=== PATIENT | female | born 1965 | race Caucasian/White ===

== ENCOUNTER 2025-01-29 10:04 | Emergency (ER) | payer OTHER, SELFPAY ==
[2025-01-29 10:13] VITALS: BP 147/93; PULSE 78; RESP 16; TEMP 36.2; O2SAT 99
--- OUTSIDE RECORDS SUMMARY | 2025-01-29 11:09 | XMS_ITS | Encounter Summary ---
Author Organization [facility] Address [address] [place] [address] Care Team Providers Care Food And Nutrition Supervisor Name Role Phone Jennifer Madera MD Primary Care Provider Jennifer Madera MD Primary Care Provider Encounter Details Date Type Department Care Team (Late st Contact Info) Description 02/27/2021 Telephone Mental Health [address] [place] [address] Shima Maguire [address] [phone] Social History Tobacco Use Types Packs/Day Years Used Date Smoking Tobacco: Never Smokeless Tobacco: Never Alcohol Use Standard Drinks/Week Comments Yes 0 (1 standard drink = 0.6 oz pure alcohol) A handful of times throughout the year Comments No Sex and Gender Information Value Date Recorded Sex Assigned at Not on file Legal Sex Female 2:25 AM PST Gender Identity Not on file Sexual Orientation Not on file documented as of this encounter Plan of Treatment Not on file documented as of this encounter Visit Diagnoses Not on filedocumented in this encounter Care Teams Food And Nutrition Supervisor Relationship Specialty [place] [address] [address] PCP - General 05/23/19 12/21/24 [place] [address] [place] [address] PCP - General 12/24/24 documented as of this encounter
--- OUTSIDE RECORDS SUMMARY | 2025-01-29 11:09 | XMS_ITS | Clinical Summary ---
Author Organization [facility] Address [address] [place] [address] Care Team Providers Care Electrical Cad Technician Name Role Phone Jennifer Madera MD Primary Care Provider Source Comments NOTE: The information displayed by Care Everywhere is extracted from the complete medical record and may not identify all current or past patient conditions.[facility] Allergies No known active allergies Medications DULoxetine (CYMBALTA) 30 mg delayed release capsuleIndicatio ns:PTSD (post-traumatic stress disorder),Anxiet y Take 3 capsules (90 mg) by mouth daily 270 capsule 3 12/30/2024 4:43 PM PDT 5 10/01/19 26 Active ciclesonide (ALVESCO) 80 mcg/actuation inhalerIndicatio ns:Exercise-joana merlene asthma Inhale 1 puff 2 times daily 6.1 g 5 11/07/2024 10:10 PM PDT 5 10/01/19 26 Active albuterol (VENTOLIN HFA) 90 mcg/actuation inhalerIndicatio ns:Exercise-jonaa merlene asthma Inhale 1-2 puffs every 4 to 6 hours as needed for shortness of breath, 1 inhaler should last at least 90 days in well-controlled asthma. 18 g 5 10/01/19 26 Active hydrocortisone 2.5 % topical creamIndications :Eczema, unspecified type Apply to affected area(s) 2 times daily as needed for skin irritation 28.35 g 10/04/2024 11:51 AM PDT 5 10/01/19 26 Active Active Problems Problem Noted Date Diagnosed Date Combined forms of age-related cataract, bilatera l 02/20/2022 Overview (02/20/2022): Added automatically from request for surgery [id number] PTSD (post-traumatic stress disorder) 04/03/2021 Exercise-induced asthma 10/29/2020 Primary malignant neuroendocrine tumor of append ix 09/07/2020 History of adenomatous polyp of colon 06/26/2020 Cecal polyp 08/25/2019 Overview (08/25/2019): records (scanned) Cecal polyp on colonoscopy 12/18/2016. Sessile serated adenoma. Per up-to-date interval is 3 years; due December 2019. Chronic post-traumatic stress disorder (PTSD) Movement disorder 07/15/2019 Fibromyalgia 07/15/2019 Encounters Date Type Department Care Team Description 01/29/2025 [facility] Telephone Encounter Consulting Nurse [address] [place] [address] Johnny Cervantes, DENISHA MANAGER CUSTOMER EYE 11/03/2024 Scanned Administrati ve Document [facility] Unsolicited Results Consent from Last 3 Months Immunizations Immunization Administration Dates Next Due *STANDARD DOSE SYRINGE* (FluLAVAL,FluZONE,FluARIX or AFLURIA) (6+ mos) QUAD 07/24/2022,05/02/2021,05/23/2019,2018 FluVIRIN (4+ years) Tri *VIAL* 05/25/2012,2010 H1N1 Influenza (.50 not PF) 07/27/2009 HepB (Hepatitis B) 12/30/2013,11/28/2013 Herpes Zoster (SHINGRIX) 10/28/2024 Influenza (0.5 PF) 05/25/2012 Influenza (0.5 not PF) 05/20/2011 MMR (Measles, Mumps, Rubella) 11/28/2013 Novel Influenza H1N1, unspec ified formulation 07/27/2009 Pfizer SARS-CoV-2 Vaccinatio n (12 + y/o) (PURPLE CAP) 08/06/2021,12/04/2020,11/13/2020 Tdap (Tetanus, Diphtheria, a cellular Pertussis) 10/28/2024,11/28/2013 Family History Medical History Relation Comments Diabetes Father Diabetes Maternal Grandfather Diabetes Maternal Uncle Hypertension Mother Miscarriages/Stillbirths Mother Depression Son Relation Status Comments Brother Alive Father Alive Maternal Grandfather Maternal Uncle Mother Alive Son Social History Tobacco Use Types Packs/Day Years Used Date Smoking Tobacco: Never Smokeless Tobacco: Never Tobacco Cessation:Counseling Given: Not Answered Alcohol Use Standard Drinks/Week Comments Yes 0 (1 standard drink = 0.6 oz pure alcohol) A handful of times throughout the year Comments No Sex and Gender Information Value Date Recorded Sex Assigned at Not on file Legal Sex Female 2:25 AM PST Gender Identity Not on file Sexual Orientation Not on file Last Filed Vital Signs Vital Sign Reading Time Taken Comments Blood Pressure 126/82 10/28/2024 9:53 AM PDT Pulse 80 10/28/2024 9:53 AM PDT Temperature 36.6 C (97.8 F) 10/28/2024 9:53 AM PDT Respiratory Rate 12 12/03/2023 2:35 PM PDT Oxygen Saturation 96% 10/28/2024 9:53 AM PDT Inhaled Oxygen Concentration - - Weight 86.6 kg (191 lb) 10/28/2024 9:53 AM PDT Height 164.3 cm (5' 4.69) 10/28/2024 9:53 AM PD T Body Mass Index 32.09 10/28/2024 9:53 AM PDT Plan of Treatment Health Maintenance Due Date Last Done Comments Cervical Cancer Screening: HPV 11/20/1995 Vaccine: COVID-19 ( season) 2024 08/06/2021, 12/04/2020, 11/13/2020 Vaccine: Shingles (2 of 2) 12/23/2024 10/28/2024 FLU VACCINE (#1) 03/20/2025 07/24/2022, , 05/23/2019, Additional history exists Blood Pressure Check 09/27/2025 10/28/2024 Breast Cancer Screening: Mammogram 02/21/2026 02/22/2024, 01/31/2022, 01/31/2022, Additional history exists CRCS: Colonoscopy, HMTs [place] by GI 12/02/2028 12/03/2023 Vaccine: PAgO-Sjbe-Cb (3 - T d or Tdap) 10/28/2034 10/28/2024, 11/28/2013 Adult HIV Screen (1-time) Completed 07/24/2022 Hep C Screening (1-time) Completed 07/24/2022 Medical Devices Implanted Type Area Head Of Commission Department Device Identifier Shelf Expiration Date Model / Serial / Lot Lens Iol .190 [employer] Monofocal Blue Light Filtering Aspheric Hydrophic Acrylic - [id number] Implanted:Qt y: 1 on 08/12/2022 by Vi Orr MD at [facility] Ophthalmology Left: Eye [employer] [id number] 12/08/2025 [id number] / [id number] / Description:CDE: 1.70 Lens Iol .185 [employer] Monofocal Blue Light Filtering Aspheric Hydrophic Acrylic - [id number] Implanted:Qt y: 1 on 08/26/2022 by Vi Orr MD at [facility] Ophthalmology Right: Eye [employer] [id number] 12/15/2025 [id number] / [id number] / Description:CDE: 1.50 Procedures Procedure Name Priority Date/Time Associated Diagnosis Comments MAMMO SCREENING, BILAT(2-VIEW) INCL CAD Routine 02/22/2024 1:30 PM PDT ANTIBODY, HEPATITIS C Routine 07/24/2022 2:26 PM PST Encounter for hepatitis C screening test for low risk patient IAAD EIA HIV-1 AG W/HIV-1&HIV-2 ANTBDY SINGLE Routine 07/24/2022 2:26 PM PST Screening for HIV (human immunodeficiency virus) from Last 3 Months or Most Recently Relevant to Health Maintenance Results * MAMMOGRAPHY SCREENING 3D, BILATERAL (02/22/2024 1:30 PM PDT) Anatomical Region Laterality Modality Other 02/22/2024 1:30 PM PDT Impressions 02/23/2024 11:59 AM PDT IMPRESSION: RIGHT BREAST: ACR CODE 1 - NEGATIVE. LEFT BREAST: ACR CODE 1 - NEGATIVE OVERALL ASSESSMENT: ACR 1 - NEGATIVE PATIENT INFORMATION We are pleased to inform you that your screening mammogram shows no signs of breast cancer. You will be receiving a letter in the mail with these results. [facility] guidelines recommend annual screening mammography for high-risk patients and screening mammography within 2 years for normal low risk patients. Examination of risk assessment by radiology is limited and ultimately should be determined by the patient's primary care provider in collaboration with the patient. Regardless of mammography results, women should seek medical attention for any of the following: A breast lump that looks or feels different from the surrounding breast tissue, skin changes, clear or bloody nipple discharge, or nipple retraction. Seek medical attention for these conditions even if a recent mammogram was normal. Patients with palpable abnormalities may require further investigation. Mammograms do not detect all breast cancers and up to 15% of breast cancers cannot be detected by mammography. Signed by: Willem Campos Jr., MD Date: 02/23/2024 11:59 AM Narrative 02/23/2024 11:59 AM PDT [HST]: Screening BILATERAL SCREENING DIGITAL MAMMOGRAM WITH TOMOSYNTHESIS: HISTORY: Screening. COMPARISON: 01/31/2022, 02/01/2020, 03/02/2017. TECHNIQUE: MAMMOGRAPHY SCREENING 3D, BILATERAL Routine screening views of each breast were performed. 3-D/tomosynthesis views with synthetic 2-D reconstructions were reviewed. Computer aided detection (CAD) with physician review was also used. These CAD findings were integrated into the final mammographic interpretation. Bilateral Breast Findings: There are scattered areas of fibroglandular density. There are no dominant masses, suspicious calcifications or architectural distortion. There has been no significant interval change since the prior examination. us Self Referral MAMMOGRAPHY Final Result * HIV SCREENING TEST W/REFLEX (07/24/2022 2:26 PM PST) HIV AG/AB COMBO RESULT NEGATIVE Negative [facility] Comment: This assay is the Blanc Guyline Operator HIV Ag/Ab Combo Assay which detects HIV-1 p24 Ag, HIV-1 Ab, and HIV-2 Ab. BLOOD 07/24/2022 2:26 PM PST 07/24/2022 7:40 PM PST [facility] W/O ABNORMAL RESULTS Sally l Result [facility] [address] [place] [address] [facility] [address] [place] [address] * HEPATITIS C SCREENING (REFLEX) ([facility]) (07/24/2022 2:26 PM PST) HEPATITIS C ANTIBODY NEGATIVE NEGATIVE [facility] BLOOD 07/24/2022 2:26 PM PST 07/24/2022 7:40 PM PST [facility] Final Result Performing Organization Address City/[facility]/ZIP Co de Phone Number [facility] [address] [place] [address] [facility] [address] [place] [address] from Last 3 Months or Most Recently Relevant to Health Maintenance Insurance [facility] Advance Directives For more information, please contact: [phone] Documents on File Type Date Recorded Patient Clinical Manager Expl anation Durable Power of [place]her Advance Directive and Living Will Advance Directive and Living Will 12/03/2023 1:16 PM Durable Power of [place] [employer]her 12/03/2023 1:16 PM Durable Power of [place]her 08/26/2022 5:53 AM Advance Directive and Living Will 08/26/2022 5:53 AM Durable Power of [place]her 08/12/2022 11:57 AM Advance Directive and Living Will 08/12/2022 11:57 AM Durable Power of [place]her 06/26/2020 8:22 AM Advance Directive and Living Will 06/26/2020 8:22 AM * Full Code (Latest Code Status on File) Date Activated Date Inactivated Comments 12/03/2023 1:25 PM 12/04/2023 6:28 AM * Full Code Date Activated Date Inactivated Comments 08/26/2022 6:09 AM 08/27/2022 6:24 AM * Full Code Date Activated Date Inactivated Comments 08/12/2022 12:05 PM 08/13/2022 6:28 AM Care Teams Electrical Cad Technician Relationship Specialty [place] [address] [address] PCP - General 12/24/24
--- OUTSIDE RECORDS SUMMARY | 2025-01-29 11:09 | XMS_ITS | Encounter Summary ---
Author Organization [facility] Address [address] [place] [address] Care Team Providers Care Stunner Animal Name Role Phone Jennifer Lange MD Primary Care Provider Jennifer Lange MD Primary Care Provider Reason for Visit * Reason Comments Refill Request Encounter Details Date Type Department Care Team (Late Contact Info) Description 07/29/2020 Refill [facility] [address] [place] [phone] [place] [address] [address] Refill Request Social History Tobacco Use Types Packs/Day Years Used Date Smoking Tobacco: Never Smokeless Tobacco: Never Alcohol Use Standard Drinks/Week Comments Not Currently 0 (1 standard drink = 0.6 oz pur e alcohol) Comments No Sex and Gender Information Value Date Recorded Sex Assigned at Not on file Legal Sex Female 2:25 AM PST Gender Identity Not on file Sexual Orientation Not on file documented as of this encounter Miscellaneous Notes * Telephone Encounter - Jennifer Lange MD - 07/31/2020 12:44 PM PSTSigned Prescriptions: Disp Refills gabapentin (NEURONTIN) 300 mg capsule 120 ca*6 Sig: TAKE ONE CAPSULE BY MOUTH FOUR TIMES DAILY Authorizing Provider: JENNIFER LANGE * Telephone Encounter - Kimberly Renee, PharmD - 07/31/2020 9:06 AM PSTPending Prescriptions: Disp Refills gabapentin (NEURONTIN) 300 mg capsule [Pha* 11 Sig: TAKE ONE CAPSULE BY MOUTH FOUR TIMES DAILY * Telephone Encounter - Kimberly Renee, PharmD - 07/31/2020 9:06 AM PST Refill(s) are unable to be approved by the Centralized Refill Management Program as the requested medication(s) requires provider review and authorization. Please review request and take appropriate action. If medication is denied or additional follow up is needed, please work with your care team to notify patient. No SCr on record. documented in this encounter Plan of Treatment Not on file documented as of this encounter Visit Diagnoses Diagnosis Chronic post-traumatic stress disorder (PTSD) documented in this encounter Care Teams Stunner Animal Relationship Specialty [place] [address] [address] [place] [address] PCP - General 05/23/19 12/21/24 [place] [address] [address] [address] PCP - General 12/24/24 documented as of this encounter
--- OUTSIDE RECORDS SUMMARY | 2025-01-29 11:09 | XMS_ITS | Encounter Summary ---
Author Organization [facility] Address [address] [place] [address] Care Team Providers Care Wastewater Supervisor Name Role Phone Jennifer Madera MD Primary Care Provider Reason for Visit * Reason Comments RECONCILIATION SPECIALIST EYE Encounter Details Date Type Department Care Team (Late st Contact Info) Description 01/29/2025 [facility] Telephone Encounter Consulting Nurse [address] [address] Johnny Cervantes, DENISHA [address] [place] [address] RECONCILIATION SPECIALIST EYE Social History Tobacco Use Types Packs/Day Years [...] encounter Miscellaneous Notes * Telephone Encounter - Johnny Cervantes RN - 01/29/2025 5:49 AM PDT Complaint: Adult Eye Blurry Vision History & Timing: Amanda Jaimes is a 59 year old patient who reports: In [place] currently Last night noticed a big black spot in right eye that has continued all night until now In lower right field of vision New big floater in the vision No flashes of light or other symptoms TRIAGE QUESTIONS and DISPOSITIONS: [After Hours] NEW Flashes or floaters OR 'veil' or 'curtain' over vision: [facility] Provider, UC/ED Advised to be seen now at nearest UC/ED in [place] for evaluation Recommended Plan: UC Patient indicates understanding and AGREES with the plan. Final Disposition: Urgent Care: OTHER [facility] documented in this encounter Plan of Treatment Not on file documented as of this encounter Visit Diagnoses Not on filedocumented in this encounter Care Teams Wastewater Supervisor Relationship Specialty Start [place] [address] [address] [address] PCP - General 12/24/24 documented as of this encounter
--- OUTSIDE RECORDS SUMMARY | 2025-01-29 11:09 | XMS_ITS | Encounter Summary ---
Author Organization [facility] Address [address] [place] [address] Care Team Providers Care Police Investigator Name Role Phone Jennifer Madera MD Primary Care Provider Jennifer Madera MD Primary Care Provider Encounter Details Date Type Department Care Team (Late st Contact Info) Description 02/27/2021 Patient Email Mental Health [address] [place] [phone] Shima Pierce [address] [address] SHIMA PIERCE ASSESSMENT - Please complete prior to appointment Social History Tobacco Use Types Packs/Day Years [...] on filedocumented in this encounter Care Teams Police Investigator Relationship Specialty [place] [address] [place] [address] PCP - General 05/23/19 12/21/24 [place] [address] [place] [address] PCP - General 12/24/24 documented as of this encounter
--- OUTSIDE RECORDS SUMMARY | 2025-01-29 11:09 | XMS_ITS | Encounter Summary ---
Author Organization [facility] Address [address] [place] [address] Care Team Providers Care Head Chef Name Role Phone Jennifer Madera MD Primary Care Provider Jennifer Madera MD Primary Care Provider Encounter Details Date Type Department Care Team (Late st Contact Info) Description 02/27/2021 Patient Email Mental Health [address] [place] [phone] Shima Pierce D [address], [place] [address] SHIMA PIERCE - Video visit Social History Tobacco Use Types Packs/Day Years [...] on filedocumented in this encounter Care Teams Head Chef Relationship Specialty [place] [address] [place] [address] PCP - General 05/23/19 12/21/24 [place] [address] [place] [address] PCP - General 12/24/24 documented as of this encounter
--- OUTSIDE RECORDS SUMMARY | 2025-01-29 11:09 | XMS_ITS | Encounter Summary ---
Author Organization [facility] Address [address] [place] [address] Care Team Providers Care Trestle Builder Name Role Phone Jennifer Madera MD Primary Care Provider Jennifer Madera MD Primary Care Provider Encounter Details Date Type Department Care Team (Late st Contact Info) Description 08/18/2022 Prep for Surgery [facility] [address] [phone] [place] [address] [phone] Combined form of age-related cataract, right eye (Primary Dx) Social History Tobacco Use Types Packs/Day Years [...] as of this encounter Visit Diagnoses Diagnosis Combined form of age-related cataract, right eye- Primary documented in this encounter Care Teams Trestle Builder Relationship Specialty [place] [address] [place], [place] [address] PCP - General 05/23/19 12/21/24 [place] [address] [address] PCP - General 12/24/24 documented as of this encounter
--- OUTSIDE RECORDS SUMMARY | 2025-01-29 11:10 | XMS_ITS | Clinical Summary ---
Author Organization [facility] Address [address] [place] [address] Care Team Providers Care Production Maintenance Mechanic Name Role Phone Unavailable Primary Care Provider Unavailabl e Allergies No known active allergies Medications peg-electrolyte soln (COLYTE,NULYTEL Y) 420 gram SolR Take by mouth TAke as directed prior to procedure. follow written instructions 0 Active tacrolimus (PROTOPIC) 0.03 % ointment Apply topically as needed Active hydrocortisone 2.5 % cream Apply topically as needed Active Active Problems Problem Noted Date Diagnosed Date Primary malignant neuroendocrine tumor of append ix 09/07/2020 Cancer Staging:Clinical: Unsigned Pathologic: Unsigned Social History Tobacco Use Types Packs/Day Years Used Date Smoking Tobacco: Never Smokeless Tobacco: Never Alcohol Use Standard Drinks/Week Comments Yes 0 (1 standard drink = 0.6 oz pur e alcohol) 1 drink every other month Comments Unknown Sex and Gender Information Value Date Recorded Sex Assigned at Not on file Legal Sex Female 5:06 AM PST Gender Identity Not on file Sexual Orientation Not on file Last Filed Vital Signs Vital Sign Reading Time Taken Comments Blood Pressure 112/72 09/05/2020 3:05 PM PST Pulse 95 09/05/2020 3:05 PM PST Temperature 36.4 C (97.5 F) 09/05/2020 2:45 PM PST Respiratory Rate 18 09/05/2020 3:05 PM PST Oxygen Saturation 98% 09/05/2020 3:05 PM PST Inhaled Oxygen Concentration - - Weight 83.9 kg (185 lb) 09/05/2020 9:39 AM PST Height 165.1 cm (5' 5) 09/05/2020 9:39 AM PST Body Mass Index 30.79 09/05/2020 9:39 AM PST Plan of Treatment Not on file Insurance [id number] [place]
--- OUTSIDE RECORDS SUMMARY | 2025-01-29 11:10 | XMS_ITS | Encounter Summary ---
Author Organization [facility] Address [address] [place] [address] Care Team Providers Care Hydraulic Modeling Engineer Name Role Phone Jennifer Madera MD Primary Care Provider Jennifer Madera MD Primary Care Provider Encounter Details Date Type Department Care Team (Late st Contact Info) Description 06/28/2021 Orders Only [facility] [address], [place] [address] [place] [address] [address] [address] Social History Tobacco Use Types Packs/Day Years [...] on filedocumented in this encounter Care Teams Hydraulic Modeling Engineer Relationship Specialty Start [place] [address] [address] [address] PCP - General 05/23/19 12/21/24 [place] [address] [place] [address] PCP - General 12/24/24 documented as of this encounter
--- OUTSIDE RECORDS SUMMARY | 2025-01-29 11:10 | XMS_ITS | Encounter Summary ---
Author Organization [facility] Address [address] [place] [address] Care Team Providers Care Meat Passer Name Role Phone Jennifer Madera MD Primary Care Provider Jennifer Madera MD Primary Care Provider Encounter Details Date Type Department Care Team (Late st Contact Info) Description 08/05/2022 Prep for Surgery [facility] [address] [phone] [place] [address] [phone] Social History Tobacco Use Types Packs/Day Years [...] on filedocumented in this encounter Care Teams Meat Passer Relationship Specialty [place] [address] [place] [address] PCP - General 05/23/19 12/21/24 [place] [address] [address] PCP - General 12/24/24 documented as of this encounter
--- OUTSIDE RECORDS SUMMARY | 2025-01-29 11:10 | XMS_ITS | Encounter Summary ---
Author Organization [facility] Address [address] [place] [address] Care Team Providers Care Optical Glass Sawyer Name Role Phone Unavailable Primary Care Provider Unavailabl e Reason for Visit * Reason Onset Date Comments COVID TEST 08/30/2020 DUE ON 09/03 COVID TEST 08/30/2020 On 09/01 with [facility]--Please refer to outgoing call log! COVID TEST 08/30/2020 With [facility] on 09/03. Encounter Details Date Type Department Care Team (Late st Contact Info) Description 08/30/2020 Telephone [facility] Surgery Pre-Admission [address] [place] [address] [place] [address] [place] [phone] COVID TEST (DUE ON 09/03); COVID TEST (On 09/01 with [facility]--Please refer to outgoing call log!); COVID TEST (With [facility] on 09/03.) Social History Tobacco Use Types Packs/Day Years Used Date Smoking Tobacco: Never Assessed Comments Unknown Sex and Gender Information Value Date Recorded Sex Assigned at Not on file Legal Sex Female 5:06 AM PST Gender Identity Not on file Sexual Orientation Not on file documented as of this encounter Plan of Treatment Not on file documented as of this encounter Visit Diagnoses Not on filedocumented in this encounter
--- OUTSIDE RECORDS SUMMARY | 2025-01-29 11:10 | XMS_ITS | Encounter Summary ---
Author Organization [facility] Address [address] [place] [address] Care Team Providers Care Terra Cotta Roofer Name Role Phone Jennifer Lange MD Primary Care Provider Jennifer Lange MD Primary Care Provider Reason for Visit * Reason Comments Refill Request Encounter Details Date Type Department Care Team (Late st Contact Info) Description 10/14/2020 Refill [facility] [address] [place] [phone] [place] [address] [address] [address] Refill Request Social History Tobacco Use Types [...] encounter Miscellaneous Notes * Telephone Encounter - Laureano Bernabe [facility] - 10/15/2020 3:16 PM PDTSigned Prescriptions: Disp Refills DULoxetine (CYMBALTA) 20 mg delayed releas*120 ca*5 Sig: TAKE ONE CAPSULE BY MOUTH FOUR TIMES DAILY Authorizing Provider: JENNIFER LANGE Ordering User: LAUREANO BERNABE * Telephone Encounter - Laureano Bernabe RPh - 10/15/2020 3:15 PM PDT Refill request approved per Prescription Renewal Protocol. documented in this encounter Plan of Treatment Not on file documented as of this encounter Visit Diagnoses Diagnosis Chronic post-traumatic stress disorder (PTSD) documented in this encounter Care Teams Terra Cotta Roofer Relationship Specialty [place] [address] [address] PCP - General 05/23/19 12/21/24 [place] [address] [address] PCP - General 12/24/24 documented as of this encounter
--- OUTSIDE RECORDS SUMMARY | 2025-01-29 11:11 | XMS_ITS | Encounter Summary ---
Author Organization [facility] Address [address] [place] [address] Care Team Providers Care Finishing Tunnel Operator Name Role Phone Jennifer Madera MD Primary Care Provider Jennifer Madera MD Primary Care Provider Encounter Details Date Type Department Care Team (Late st Contact Info) Description 09/10/2023 Automated Patient Message [address] [phone] Social History Tobacco Use Types Packs/Day Years [...] on filedocumented in this encounter Care Teams Finishing Tunnel Operator Relationship Specialty [place] [address] [address] PCP - General 05/23/19 12/21/24 [place] [address] [address] PCP - General 12/24/24 documented as of this encounter
--- OUTSIDE RECORDS SUMMARY | 2025-01-29 11:11 | XMS_ITS | Encounter Summary ---
Author Organization [facility] Address [address] [place] [address] Care Team Providers Care Director Of Medical Education Name Role Phone Jennifer Madera MD Primary Care Provider Jennifer Madera MD Primary Care Provider Encounter Details Date Type Department Care Team (Late st Contact Info) Description 06/30/2023 Automated Patient Message [address] [phone] Social History Tobacco Use Types Packs/Day Years [...] on filedocumented in this encounter Care Teams Director Of Medical Education Relationship Specialty [place] [address] [address] PCP - General 05/23/19 12/21/24 [place] [address] [address] PCP - General 12/24/24 documented as of this encounter
--- OUTSIDE RECORDS SUMMARY | 2025-01-29 11:11 | XMS_ITS | Encounter Summary ---
Author Organization [facility] Address [address] [place] [address] Care Team Providers Care Centerless Grinding Machine Adjuster Name Role Phone Jennifer Madera MD Primary Care Provider Jennifer Madera MD Primary Care Provider Encounter Details Date Type Department Care Team (Late st Contact Info) Description 08/12/2023 Automated Patient Message [address] [phone] Social History Tobacco Use Types Packs/Day Years [...] on filedocumented in this encounter Care Teams Centerless Grinding Machine Adjuster Relationship Specialty [place] [address] [address] PCP - General 05/23/19 12/21/24 [place] [address] [address] PCP - General 12/24/24 documented as of this encounter
--- OUTSIDE RECORDS SUMMARY | 2025-01-29 11:11 | XMS_ITS | Encounter Summary ---
Author Organization [facility] Address [address] [place] [address] Care Team Providers Care Analog Device Designer Name Role Phone Jennifer Madera MD Primary Care Provider Jennifer Madera MD Primary Care Provider Encounter Details Date Type Department Care Team (Late st Contact Info) Description 04/09/2022 Prep for Surgery [facility] [address] [phone] [place] [address] [phone] Combined forms of age-related cataract of both eyes (Primary Dx) Social History Tobacco Use Types [...] of this encounter Visit Diagnoses Diagnosis Combined forms of age-related cataract of both eyes- Primary Other and combined forms of senile cataract documented in this encounter Care Teams Analog Device Designer Relationship Specialty [place] [address] [place] [address] PCP - General 05/23/19 12/21/24 [place] [address] [place] [address] PCP - General 12/24/24 documented as of this encounter
--- OUTSIDE RECORDS SUMMARY | 2025-01-29 11:11 | XMS_ITS | Encounter Summary ---
Author Organization [facility] Address [address] [place] [address] Care Team Providers Care Social Work Case Manager Name Role Phone Jennifer Madera MD Primary Care Provider Jennifer Madera MD Primary Care Provider Encounter Details Date Type Department Care Team (Late st Contact Info) Description 12/02/2023 Automated Patient Message [address] [phone] Social History Tobacco Use Types Packs/Day Years [...] on filedocumented in this encounter Care Teams Social Work Case Manager Relationship Specialty [place] [address] [address] PCP - General 05/23/19 12/21/24 [place] [address] [address] PCP - General 12/24/24 documented as of this encounter
--- OUTSIDE RECORDS SUMMARY | 2025-01-29 11:11 | XMS_ITS | Encounter Summary ---
Author Organization [facility] Address [address] [place] [address] Care Team Providers Care Business Risk Consultant Name Role Phone Jennifer Madera MD Primary Care Provider Jennifer Madera MD Primary Care Provider Encounter Details Date Type Department Care Team (Late st Contact Info) Description 07/14/2023 Automated Patient Message [address] [phone] Social History Tobacco Use Types Packs/Day Years [...] on filedocumented in this encounter Care Teams Business Risk Consultant Relationship Specialty [place] [address] [address] PCP - General 05/23/19 12/21/24 [place] [address] [address] PCP - General 12/24/24 documented as of this encounter
--- NOTE | 2025-01-29 11:22 | ED_ITS ---
HPI - Eye Problem General Chief complaint: Eye Problems Stated complaint: R eye problem Time Seen by Provider: 01/29/25 10:50 History of Present Illness HPI Narrative: Patient is a 59-year-old female who presents ER with loss of vision in the right eye in the right lower quadrant. Sudden onset last night at 9:00 p.m.. Continues today. No pain in the eye. No trauma to the eye. No flashers or floaters. Normal left eye. Related Data Allergies Allergy/AdvReac Type Severity Reaction Status Date / Time No Known Allergies Allergy Verified 01/29/25 10:13 Review of Systems Review of Systems: All systems reviewed & are unremarkable except as noted in HPI and below Constitutional: Constitutional: Reports no additional constitutional complaints Eyes: Eyes: Reports no additional eye complaints ENT: Reports system reviewed and no additional complaints, except as documented PMFSH Past Medical History Medical History (Updated 01/29/25 @ 11:51 by Levi Zhang MD) Asthma Surgical History Surgical History (Updated 01/29/25 @ 11:51 by Levi Zhang MD) No pertinent past surgical history Exam Narrative: GENERAL: Well-appearing, well-nourished, and in no acute distress. HEAD: Normocephalic, atraumatic. EYES: PERRLA and EOMI. Vision in the right eye is 20/30 without correction. Loss of peripheral vision in the right lower quadrant of the right eye. No foreign body and direct to inspection. Right ocular pressure 10 mmHg. ENT: Mucous membranes moist. EXTREMITIES: Normal range of motion. No edema. NEURO: Alert and oriented x3. PSYCH: Normal mood and affect. Course Course Emergency Course: Discussed with [facility] who would like the patient evaluated in the ER. ER physician accepting the patient is Dr. Matthews. Patient instructed to go directly to the ER. She is not to eat or drink incase she were to require surgical procedure. Vital Signs Vital signs: Vital Signs Temperature 97.1 F L 01/29/25 10:13 Pulse Rate 78 01/29/25 10:13 Respiratory Rate 16 01/29/25 10:13 Blood Pressure 147/93 H 01/29/25 10:13 Pulse Oximetry 99 01/29/25 10:13 Temperature 97.1 F L 01/29/25 10:13 Pulse Rate 78 01/29/25 10:13 Respiratory Rate 16 01/29/25 10:13 Blood Pressure 147/93 H 01/29/25 10:13 Pulse Oximetry 99 01/29/25 10:13 Discharge Plan Discharge Clinical Impression: Monocular vision loss, Retinal detachment Patient Disposition: Acute Care Hospital Condition: Stable Patient Language: Citizen Of [place] Follow-up/Referrals: PHYSICIAN NOT ON STAFF,NONSTAFF [Primary Care Provider] -
[2025-01-29 12:02] VITALS: BP 134/88; PULSE 80; RESP 16; O2SAT 99
== END 2025-01-29 12:15 | disposition short-term general hospital (02) ==
PROVIDERS: Emergency Provider Emergency Medicine
DX: H33.21 Serous retinal detachment, right eye (principal); J45.909 Unspecified asthma, uncomplicated
CPT/HCPCS: 99283